=== PATIENT | male | born 1995 | race Caucasian/White ===

== ENCOUNTER 2017-08-17 21:24 | Emergency (ER) | payer SELFPAY | END 2017-08-17 23:38 | disposition home or self-care (01) | LOC: D.ER 21:24 | DX: S00.93XA Contusion of unspecified part of head, initial encounter (principal); S40.012A Contusion of left shoulder, initial encounter; S10.93XA Contusion of unspecified part of neck, initial encounter; Y04.2XXA Assault by strike against or bumped into by another person, initial encounter; Y93.89 Activity, other specified; Y92.410 Unspecified street and highway as the place of occurrence of the external cause; S00.81XA Abrasion of other part of head, initial encounter; M79.1 Myalgia ==